=== PATIENT | male | born 1945 | race Caucasian/White ===

== ENCOUNTER → 2025-04-15 12:29 | Outpatient (REF) | payer MEDICARE, SELFPAY | LOC: RAD 12:29 | PROVIDERS: ATTENDING PHYSICIAN Surgery Vascular Surgery; FAMILY PHYSICIAN Family Medicine | DX: I65.21 Occlusion and stenosis of right carotid artery (principal) | CPT/HCPCS: 70496; 70498; Q9967 ==

== ENCOUNTER 2025-06-18 06:03 | Inpatient (IN) | payer MEDICARE, SELFPAY ==
[2025-06-11 09:17] VITALS: BMI 22.0
[2025-06-11 09:59] LABS: Hematocrit 32.6 % (39.0-52.0); Hemoglobin 11.5 g/dL (13.0-18.0); Mean Corp Hgb Conc. 35.3 g/dL (33.0-37.0); Mean Corpuscular Volume 94.2 fL (80.0-94.0); Nucleated Red Blood Cells % 0 % (-); Platelet Count 217 10^3/uL (130-400); Red Cell Dist. Width 11.9 % (11.5-14.5)
[2025-06-11 10:09] LABS: INR 1.01; PT 13.6 Sec (11.4-14.6)
[2025-06-11 10:11] LABS: APTT 30.5 Sec (23.4-35.0)
[2025-06-11 10:23] LABS: Blood Urea Nitrogen 17 mg/dl (9-20); Calcium 10.3 mg/dl (8.4-10.2); Carbon Dioxide 28 mmol/L (22-30); Chloride 102 mmol/L (98-107); Estimated Creatinine Clearance 59 ml/min; Glucose 97 mg/dl (70-99); Potassium 4.4 mmol/L (3.5-5.1); Sodium 136 mmol/L (135-145); eGFR > 60.00
[2025-06-18] VITALS (11 sets, daily range): BP systolic 92–162; BP diastolic 44–74; BMI 21.8
[2025-06-18] MEDS: BACTROBAN NASAL 1 GRAM NASAL (06:48)
[2025-06-18] MEDS: PERIDEX 0.12% ORAL RINSE 15 ML PO (06:48)
[2025-06-18] MEDS: NSS 1000 IV ×3 (07:02→23:07)
[2025-06-18] MEDS: VANCOCIN 200 IV (07:10)
[2025-06-18] MEDS: ASPIR LOW (ENTERIC COATED) 81 MG PO (07:22)
--- NOTE | 2025-06-18 07:22 | W.SUR.PREOP ---
Pre-Operative Surgical Note
-
I have examined this patient prior to the performance of the scheduled procedure.
The patient's condition is unchanged from the time of the current History and
Physical and the patient is able to undergo the scheduled procedure.
[2025-06-18 09:02] LABS: ACT-LR - POC 260 Seconds (116-155)
[2025-06-18 09:40] LABS: ACT-LR - POC 232 Seconds (116-155)
--- NOTE | 2025-06-18 10:11 | OR.RPT ---
Operative Report
Operative Report
Date of Operation: 06/18/2025
Pre Op Diagnosis: Heavily calcified high-grade right carotid stenosis, asymptomatic
Post Op Diagnosis: Heavily calcified high-grade right carotid stenosis, asymptomatic
Procedure: RIGHT carotid endarterectomy with patch angioplasty using bovine pericardium
Surgeon: Burke Gibbons III, MD
Battery Charger Conveyor Line: General
Anesthesia: General
Complications: None
History and Indications for Procedure: 79-year-old male with asymptomatic high-grade calcified right carotid stenosis
Procedure in Detail: Mauricio Sherman was correctly identified and placed supine on the operating table. After adequate induction of anesthesia the right neck was positioned, prepped and draped in the usual sterile fashion. Preoperative antibiotics were
administered. A timeout procedure was performed with the nursing and anesthesia staff confirming the patients identity as well as the nature and laterality of the procedure.
The carotid bifurcation was marked with ultrasound at the beginning of the case. The incision was planned accordingly. An incision was made along the anterior border of the right sternocleidomastoid muscle. Electrocautery was used to divide the
subcutaneous tissue and platysma. The carotid sheath was entered with sharp dissection. The internal jugular vein was retracted laterally. The vagus nerve was identified and protected throughout the case. The common carotid artery was identified at
the base of this incision and carefully encircled with a vessel loop. The patient was systemically heparinized. The dissection was continued distally towards the carotid bifurcation. The facial vein was skeletonized, ligated and divided between ties
and clips. The proximal external carotid artery was encircled with a vessel loop. The distal internal carotid artery was encircled with a vessel loop at a soft spot on the artery beyond the plaque. The hypoglossal nerve was identified and protected.
The internal vessel loop was secured followed by the common and external. An arteriotomy was made on the distal common carotid artery with an 11-blade. This was extended proximally and distally with Warren scissors. The arteriotomy was extended
distally through the plaque to an area of normal appearing internal carotid artery. The distal vessel loop was replaced with a short tip hockey-stick type vascular clamp. An endarterectomy was performed with a [place] elevator in the standard
fashion. The proximal extent of the plaque was transected with scissors. The distal end of the plaque in the internal carotid artery was feathered and no distal intimal flap was identified. The plaque extending into the external carotid artery was
everted. Once the plaque was fully removed the endarterectomy plane was irrigated with heparinized saline and any loose fronds of tissue were removed. A pre-cut piece of bovine pericardium was sewn in place using a running 6-0 Prolene suture. Prior
to the completion of the patch the common carotid was allowed to forward bleed and the external was allowed to back bleed. The area under the patch was irrigated with heparinized saline to remove any potential thrombus or debris. The anastomosis was
completed.
The external vessel loop was released first, followed by the common and then the internal. There was an excellent pulse in the distal internal carotid artery. An excellent quality Doppler signal in the distal internal carotid artery was also
confirmed. The patch suture line was closely inspected for hemostasis and was achieved. Protamine was administered. Hemostasis was achieved in the wound bed. The wound was irrigated with saline solution.
The wound was then closed in layers. Sterile skin glue was applied. The patient awoke from anesthesia with no immediate neuro deficits and was taken to the PACU in stable condition.
Attestation: I was present and responsible for the entire procedure
Signed:
Burke Gibbons III, MD
Vascular Surgery
[facility]
--- NOTE | 2025-06-18 10:22 | W.SUR.POST ---
Surgical Immediate Post Op
Note
Pre Op Diagnosis: Right carotid stenosis
Post Op Diagnosis: Right carotid stenosis
Procedure Performed: Right carotid endarterectomy
Primary Surgeon: Burke Gibbons MD
Secondary Surgeons: Vladimir Barron MD PhD
Anesthesia: General, per anesthesia
Estimated Blood Loss: 20 cc
Fluids: Per anesthesia
Drains/Shunts: None
Specimens/Cultures: None
Doppler/Duplex/Angio (Y/N): Doppler
Complications: None
Operative Findings: Right carotid endarterectomy for extensive plaque stenosis, patch angioplasty.
[2025-06-18] MEDS: SUBLIMAZE 25 MCG IV ×2 (10:38→11:02)
[2025-06-18] MEDS: NEO-SYNEPHRINE 250 IV (11:11)
[2025-06-18 11:58] LABS: Glucose - Point of Care 119 mg/dl (70-99)
[2025-06-18] MEDS: ROXICODONE 5 MG PO (12:00)
--- NOTE | 2025-06-18 12:37 | PTCARENOTE ---
patient received from PACU, assessments per work list. medicated with Roxicodone per prn order. neuro assessments unchanged from PACU handoff. preexiting left leg weakness from polio. monitor apace. neosynephrine gtt per orders . denies urge to
void. oriented to room. call mayes in reach
--- NOTE | 2025-06-18 15:24 | CON.INTV ---
Addendum entered and electronically signed by Pam Rodriguez MD 06/19/25 12:26:
06/19
Patient discharging home.
[facility] service available as needed.
Original Note:
Consultation
Consultation Request
Date/Time Consultation Requested: 06/18/2025
Date/Time Consultation Performed: 06/18/2025
Medical History
-
Chief Complaint: Carotid artery stenosis
History of Present Illness:
Patient is a 71-year-old gentleman with known history of carotid artery stenosis. He was evaluated in the vascular surgery office and was recommended to have carotid endarterectomy. Patient was admitted to the hospital for the above-stated
procedure and postprocedure was admitted to the ICU. [facility] consultation was requested for further input.
Past Medical History: Reports HTN, Hypercholesterolemia and Other (Cancer (Skin ) and Other (polio))
Additional Past Medical History:
Moderate , Left IJ DVT post pacemaker placement.
Past Surgical History: Reports Cardiac (DC PPM SJM Implant (01/19/23)) and Orthopedic (Rotator cuff))
Social History
Tobacco: Non-smoker
Alcohol: Daily
Family History
Family History: Not pertinent
Allergies / Home Medications
Allergies / Home Medications
Allergies
Allergy/AdvReac Type Severity Reaction Status Date / Time
Penicillins Allergy Swelling/tongue Verified 02/09/23 20:05
swelling
Home Medications
�Medication �Instructions �Recorded �Confirmed �Last Taken �Type
lisinopril 10 1 tab PO DAILY Blood Pressure 01/19/23 06/18/25 06/17/25 History
mg-hydrochlorothiazide 12.5 mg
tablet
multivitamin with minerals 1 tab PO HS Supplement 01/19/23 06/18/25 06/17/25 History
simvastatin 20 mg tablet 20 mg PO HS High Cholesterol 01/19/23 06/18/25 06/17/25 History
vitamin B complex-folic acid 0.4 1 tab PO QPM Supplement 01/19/23 06/18/25 06/17/25 History
mg tablet
aspirin 81 mg tablet 81 mg PO DAILY Blood Clot 06/10/25 06/18/25 06/17/25 History
Prevention/Tx
calcium carbonate (Tums) 200 - 600 mg PO DAILY PRN 06/10/25 06/11/25 Unknown History
indigestion
cholecalciferol (vitamin D3) 125 125 mcg PO HS Supplement 06/10/25 06/18/25 06/17/25 History
mcg (5,000 unit) tablet (Vitamin
D3)
ezetimibe 10 mg tablet 10 mg PO HS High Cholesterol 06/10/25 06/18/25 06/17/25 History
ibuprofen 200 mg tablet (Advil) 200 mg PO DAILY Pain 06/10/25 06/10/25 Unknown History
calcium carbonate 500 mg PO DAILY Supplement 06/11/25 06/11/25 Unknown History
ferrous sulfate 325 mg (65 mg 325 mg PO DAILY Supplement 06/11/25 06/18/25 06/17/25 History
iron) tablet
Review of Systems
-
Hematologic/Lymphatic: Other (All 14 systems reviewed and negative except as stated above in the history of present illness.)
Vitals / Labs / Diagnostic Testing
Vital Signs
Temp Pulse Resp BP Pulse Ox
97.0 F 76 19 100/48 99
06/18/25 12:06 06/18/25 15:10 06/18/25 15:10 06/18/25 11:49 06/18/25 15:10
Lab Data
06/11/25 09:24
06/18/25 11:13
Laboratory Results
06/18/25
11:13
PT Cancelled
INR Cancelled
APTT Cancelled
Diagnostic Testing:
Physical Exam
-
HEENT: Normocephalic
Cardiovascular: S1/S2
Respiratory: Clear
GI: Soft
Neurology: Awake and Alert
Skin: Warm
General: Comfortable
Assessment
-
Patient is s/p - by vascular surgery service, POD #0
Continue observation following procedure
Follow neurovascular checks per protocol
ASA, Lipitor.
Follow BP monitoring and parameters as set by primary team
Cardiac history reviewed
Monitor on telemetry
Pain control per protocol
RASS goal 0
No prior history of pulmonary disease, smoking hx includes
CXR reviewed indicating no acute disease
No prior PFTs for review
Encouraged IS
Diet advancement per protocol
Aspiration precautions
GI prophylaxis: None
Cr at baseline, follow UO
Critical I/Os
Void trials
Replete electrolytes as needed
No signs/symptoms suspicious for infectious etiology at this time
Will observe off antibiotics for now
Follow temperatures/CBC
Hb and platelets postoperatively stable
DVT prophylaxis: On subcu heparin
Other medical diagnoses:
- Aortic stenosis, Moderate. Out patient cardiology follow up
- Sick sinus syndrome, s/p Pacemaker placement
- HTN, HLD
- Left IJ DVT history, post pacemaker placement, was treated with anticoagulation for 3 months.
Critical Care time [57 ] mins -- The patient is admitted for acute critical illness for the treatment of vital organ failure and/or prevention of further life-threatening conditions. Total care includes time spent in review of history, physical
exam, medications, hemodynamic/ventilator parameters, laboratory data, imaging and discussion with house staff, pharmacy, respiratory therapy, principal technical architect, and nursing
Data:
CXR 05/2025: 1. Severe calcific atherosclerotic plaque in the right carotid bifurcation.
2. Moderate bilateral lung hyperinflation.
3. Mild biapical pleural thickening.
4. Left-sided cardiac pacemaker in place.
--- NOTE | 2025-06-18 15:56 | PTCARENOTE ---
patient reassessed. c/o mild heartburn, states he has heartburn like this at home and takes tums with relief. TT to vascular environmental protection specialist with patient request
[2025-06-18] MEDS: TUMS CHEWABLE TABLET 400 MG PO ×2 (16:19→22:01)
[2025-06-18] MEDS: LIPITOR 10 MG PO (17:47)
--- NOTE | 2025-06-18 20:00 | PTCARENOTE ---
Assumed care of pt at change of shift. Neuro check confirmed with previous RN, No changes, R neck incision ecchymotic but soft with no hematoma. No complaints of pain from patient. Patient assessed, see flowsheets. Call mayes within reach.
[2025-06-18] MEDS: HEPARIN 5000 UNITS SC (20:11)
[2025-06-18] MEDS: VITAMIN D3 (cholecalciferol) 125 MCG PO (21:07)
[2025-06-18] MEDS: ZETIA 10 MG PO (21:07)
[2025-06-19] VITALS (7 sets, daily range): BP systolic 125–170; BP diastolic 58–69
[2025-06-19 04:28] LABS: Hematocrit 26.5 % (39.0-52.0); Hemoglobin 9.5 g/dL (13.0-18.0); Mean Corp Hgb Conc. 35.8 g/dL (33.0-37.0); Mean Corpuscular Volume 94.6 fL (80.0-94.0); Platelet Count 174 10^3/uL (130-400); Red Cell Dist. Width 11.8 % (11.5-14.5)
[2025-06-19 04:44] LABS: INR 1.11; PT 14.6 Sec (11.4-14.6)
[2025-06-19 04:45] LABS: APTT 32.0 Sec (23.4-35.0)
[2025-06-19 04:46] LABS: Blood Urea Nitrogen 18 mg/dl (9-20); Calcium 8.9 mg/dl (8.4-10.2); Carbon Dioxide 23 mmol/L (22-30); Chloride 111 mmol/L (98-107); Estimated Creatinine Clearance 66 ml/min; Glucose 122 mg/dl (70-99); Magnesium 1.8 mg/dl (1.6-2.3); Potassium 4.2 mmol/L (3.5-5.1); Sodium 136 mmol/L (135-145); eGFR > 60.00
[2025-06-19] MEDS: B COMPLEX w/VITAMIN C 1 CAPLET PO (08:32)
[2025-06-19] MEDS: NSS IV (08:32)
[2025-06-19] MEDS: FEOSOL 325 MG PO (08:32)
[2025-06-19] MEDS: HEPARIN 5000 UNITS SC (08:32)
[2025-06-19] MEDS: LOW STRENGTH ASPIRIN 81 MG PO (08:33)
[2025-06-19] MEDS: THERAGRAN 1 TABLET PO (08:34)
[2025-06-19] MEDS: OSCAL CAL 500 500 MG PO (08:34)
[2025-06-19] MEDS: ORETIC 12.5 MG PO (08:34)
[2025-06-19] MEDS: ZESTRIL 10 MG PO (08:35)
--- NOTE | 2025-06-19 08:40 | W.PN.VS ---
Addendum entered and electronically signed by Ja White MD 06/20/25 08:01:
Seen and examined with CONVENTIONS ASSISTANT yesterday. This is a late entry. Agree with findings and plan as discussed and noted below.
Original Note:
Today's Communication / Plan
-
Patient seen and examined at bedside with Dr. Ja White M.D., below plan reviewed with attending.
Assessment/Plan
-
Assessment: 79-year-old male POD #1 right carotid enterectomy with patch angioplasty using bovine pericardium
Plan:
Discontinue IV fluids
Discontinue arterial line
Out of bed to chair with progression to ambulation as tolerated
Continue antiplatelet aspirin
Possible discharge later today pending patient aggression
Subjective Data
-
Date of Service: June 19, 2025
Patient seen and examined, offers no complaints. Denies nausea, vomiting, fever, and headache. Reports tolerating p.o. diet. Denies new unilateral weakness, vision changes, dysphagia, dysarthria, or aphasia. Patient is a polio survivor and at
baseline has left lower extremity weakness with muscle atrophy.
Objective Data
-
Vital Signs
Temp Pulse Resp BP Pulse Ox
97.7 F 84 18 128/58 98
06/19/25 07:23 06/19/25 05:00 06/19/25 05:00 06/19/25 04:22 06/19/25 05:00
Intake and Output
06/18/25 06/19/25 06/20/25
06:59 06:59 06:59
Intake Total 1958 / 1958
Output Total 1475 / 1475
Balance 484 / 484
Intake:
Oral fluids 360 / 360
IV fluids (Total) 1599 / 1599
NSS 150 / 150
Kojo 9 / 9
Nss 1,000 ml @ 80 mls/hr IV . 1440 / 1440
[id number] [facility] Rx#:[id number]
Output:
Urine, Voided 1475 / 1475
Lab Results
06/19/25 04:21
06/19/25 04:21
Calcium 8.9 mg/dl (8.4-10.2) 06/19/25 04:21
Phosphorus 2.3 mg/dl (2.5-4.5) L 06/19/25 04:21
Magnesium 1.8 mg/dl (1.6-2.3) 06/19/25 04:21
Physical Exam
-
No apparent distress, resting in bed comfortably
Right neck surgical incision clean, dry, and intact no evidence of hematoma or edema, tongue midline, face symmetrical
No tachycardia
No dyspnea on room air
Moves bilateral upper extremities with equal strength, right lower extremity 5 out of 5 strength, left lower extremity chronically weak with muscle atrophy following polio as a child, patient endorses left lower extremity strength is unchanged from
baseline
--- NOTE | 2025-06-19 10:54 | PTCARENOTE ---
Pt ambulated around unit with shoes given uneven legs from polio. Gait at baseline per pt. Ambulated without device. No complaint. Looking forward to going home to have a shower.
[2025-06-19] MEDS: TUMS CHEWABLE TABLET 400 MG PO (11:46)
--- NOTE | 2025-06-19 12:30 | W.DS.TRANS ---
DC Summary - Patient Transport Orderly
-
Discharge Instructions:
Discharge Diagnosis/Procedures RIGHT carotid endarterectomy with patch
angioplasty using bovine pericardium
Diet As tolerated
Activity No strenuous activity
Driving Restrictions Not until seen by your Dr
Bathing Restrictions OK to Shower
Instructions:
Stand-Alone Forms: Vascular Surg Discharge Instr
Changes to Home Medications: Yes
Discharge Medications:
DC Medications w/original date entered in [facility]
lisinopril 10 mg-hydrochlorothiazide 12.5 mg tablet 1 tab PO DAILY Blood Pressure 01/19/23
multivitamin with minerals 1 tab PO HS Supplement 01/19/23
simvastatin 20 mg tablet 20 mg PO HS High Cholesterol 01/19/23
vitamin B complex-folic acid 0.4 mg tablet 1 tab PO QPM Supplement 01/19/23
aspirin 81 mg tablet 81 mg PO DAILY Blood Clot Prevention/Tx 06/10/25
calcium carbonate (Tums) 200 - 600 mg PO DAILY PRN indigestion 06/10/25
cholecalciferol (vitamin D3) 125 mcg (5,000 unit) tablet (Vitamin D3) 125 mcg PO HS Supplement 06/10/25
ezetimibe 10 mg tablet 10 mg PO HS High Cholesterol 06/10/25
ibuprofen 200 mg tablet (Advil) 200 mg PO DAILY Pain 06/10/25
Held on 06/19/25. Instructions: Resume on 06/26/25.
calcium carbonate 500 mg PO DAILY Supplement 06/11/25
ferrous sulfate 325 mg (65 mg iron) tablet 325 mg PO DAILY Supplement 06/11/25
Home Medication Changes
Held:
ibuprofen 200 mg tablet (Advil) 200 mg PO DAILY Pain 06/10/25
Held on 06/19/25. Instructions: Resume on 06/26/25.
Pending Results: No
--- NOTE | 2025-06-19 13:08 | PTCARENOTE ---
Discharge instructions given, iv sites removed and pt removed from monitor. Waiting on ride to arrive.
--- NOTE | 2025-06-19 13:10 | CM ---
[facility] has been medically cleared for discharge to home with no additional skilled services. Patient has arranged for transport home.
[2025-06-20 19:18] LABS: Hepatitis C Antibody Negative (Negative)
== END 2025-06-19 13:52 | disposition home or self-care (01) | DRG 39 ==
LOC: ICU 06:03
PROVIDERS: Nurse Practitioner; Nurse Practitioner Family; ADMITTING PHYSICIAN Surgery Vascular Surgery; CONSULT PHYSICIAN Internal Medicine; PRIMARYCARE PHYSICIAN Family Medicine
PROC: 03UK0KZ Supplement Right Internal Carotid Artery with Nonautologous Tissue Substitute, Open Approach (ICD-10-PCS; 2025-06-18)
PROC: 03CK0ZZ Extirpation of Matter from Right Internal Carotid Artery, Open Approach (ICD-10-PCS; 2025-06-18)
DX: I65.21 Occlusion and stenosis of right carotid artery (principal); E78.00 Pure hypercholesterolemia, unspecified; I10 Essential (primary) hypertension; Z88.0 Allergy status to penicillin; Z85.828 Personal history of other malignant neoplasm of skin; Z86.12 Personal history of poliomyelitis; Z86.718 Personal history of other venous thrombosis and embolism; Z95.0 Presence of cardiac pacemaker; Z79.82 Long term (current) use of aspirin
CPT/HCPCS: 35301; 36415; 71045; 71046; 80048; 82962; 83735; 84100; 85025; 85027; 85610; 85730; 86803; 88304; 88311; 93005; 95938; 95941; 95955

== ENCOUNTER → 2025-08-05 10:15 | Outpatient (REF) | payer MEDICARE, SELFPAY | LOC: RAD 10:15 | PROVIDERS: ATTENDING PHYSICIAN Surgery Vascular Surgery; FAMILY PHYSICIAN Family Medicine | DX: I65.21 Occlusion and stenosis of right carotid artery (principal) | CPT/HCPCS: 93880 ==